=== PATIENT | female | born 1985 | race Two or more races ===

== ENCOUNTER 2018-09-29 01:37 | Inpatient (IN) | payer OTHER ==
[~2018-09-29] VITALS: Ht 167.6 cm; Wt 87.6 kg
--- NOTE | 2018-09-29 01:55 | NUR ---
RN OPEN NOTES RECEIVED PATIENT DIRECT ADMIT FROM [facility] VIA [facility]. A/OX4. NO SIGNS OF DISTRESS OR DISCOMFORT. BREATHING EVEN AND UNLABORED. STATES PAIN IS 5/10 IN ABD AND TOLERABLE AT THIS TIME. IV ACCESS IN LAC, PATENT AND INTACT, NO SIGNS OF REDNESS OR INFILTRATION. ORIENTED PATIENT TO UNIT AND ROOM. SKIN INTACT. BED IN LOW LOCKED POSITION WITH SIDE RAILS X2. CALL LIGHT WITHIN REACH. WILL CONTINUE TO MONITOR.
[2018-09-29 01:56] VITALS: BP 117/73
[2018-09-29] MEDS ORDERED: ACETAMINOPHEN 650 MG/SUPP.RECT RC PRN (04:30)
[2018-09-29] MEDS: IV D5/ 0.9% NACL 1,000 ML IV PRN (06:05)
[2018-09-29 07:13] LABS: BASOPHILS % (AUTO) 0.5 % (0.0-2.0); EOSINOPHILS % (AUTO) 4.5 % (0.0-6.0); HEMATOCRIT 40 % (33-45); HEMOGLOBIN 13.5 g/dL (11.5-14.8); LYMPHOCYTES # (AUTO) 1.4 /CMM (0.8-4.8); LYMPHOCYTES % (AUTO) 26.9 % (20.0-44.0); MEAN CORPUSCULAR HGB CONC 34 g/dl (31.0-36.0); MEAN CORPUSCULAR VOLUME 84 fL (82-100); MONOCYTES # (AUTO) 0.4 /CMM (0.1-1.30); MONOCYTES % (AUTO) 6.7 % (2.0-12.0); NEUTROPHILS # (AUTO) 3.2 /CMM (1.8-8.9); NEUTROPHILS % (AUTO) 61.4 % (43.0-81.0); PLATELET COUNT (AUTO) 228 /CMM (150-450); RED BLOOD CELL COUNT(AUTO) 4.79 MIL/uL (4.0-5.2); WHITE BLOOD COUNT (AUTO) 5.2 K/uL (4.3-11.0)
[2018-09-29 07:41] LABS: ALBUMIN 3.7 g/dL (3.4-5.0); CALCIUM, SERUM 8.7 mg/dL (8.5-10.1); CREATININE 0.9 mg/dL (0.6-1.3); MAGNESIUM 1.8 mg/dL (1.8-2.4); PHOSPHORUS 4.1 mg/dL (2.5-4.9); POTASSIUM 3.3 mmol/L (3.5-5.1); TOTAL PROTEIN, SERUM 6.9 g/dL (6.4-8.2)
--- NOTE | 2018-09-29 07:44 | NUR ---
RN CLOSING NOTES PATIENT AWAKE IN BED. A/OX4. NO SIGNS OF DISTRESS OR DISCOMFORT. BREATHING EVEN AND UNLABORED. STATES PAIN IN ABD IS TOLERABLE AT THIS TIME. IV ACCESS IN LAC WITH D5NS INFUSING, PATENT AND INTACT, NO SIGNS OF REDNESS OR INFILTRATION. ALL NEEDS MET. NO SIGNIFICANT CHANGES THROUGH THE NIGHT. BED IN LOW LOCKED POSITION WITH SIDE RAILS X2. CALL LIGHT WITHIN REACH. ENDORSED TO AM SHIFT FOR KAIDEN.
[2018-09-29 08:00] VITALS: BP 114/69
--- NOTE | 2018-09-29 08:00 | NUR ---
MS 2 RN AM NOTES RECEIVED PATIENT A/OX4. NO SIGNS OF DISTRESS OR DISCOMFORT. BREATHING EVEN AND UNLABORED. STATES PAIN IN ABD IS TOLERABLE AT THIS TIME. IV ACCESS IN LAC, PATENT AND INTACT WITH IVF D5NS AT 80 ML/HR INFUSING WELL, NO SIGNS OF REDNESS OR INFILTRATION ON THE IV SITE. ORIENTED PATIENT TO USE OF CALL LIGHT. SKIN INTACT. BED IN LOW LOCKED POSITION WITH SIDE RAILS X2. WITH BRP. CALL LIGHT WITHIN REACH. WILL CONTINUE TO MONITOR.
[2018-09-29] MEDS: FAMOTIDINE/PF INJ 20 MG/2 ML VIAL IV SCH ×2 (09:21→21:12)
[2018-09-29] MEDS ORDERED: POTASSIUM CHLORIDE 20 MEQ TAB.PRT.SR PO SCH (11:00)
[2018-09-29] MEDS: POTASSIUM CL. PREMIX PERIPHER. 50 ML IV SCH ×2 (11:54→14:40)
[2018-09-29] MEDS: MORPHINE SULFATE INJ 2 MG/ML DISP.SYRIN IV PRN ×2 (11:55→14:40)
--- NOTE | 2018-09-29 12:31 | NUR ---
PT HAS POTASSIUM IV INFUSION ONGOING AND C/O BURNING SENSATION IN THE IV SITE.INFUSED POTASSIUM IV ACCORDING TO PT'S TOLERANCE WHICH WILL CAUSE DELAY IN INFUSION.
[2018-09-29] MEDS: ONDANSETRON HCL/PF 4 MG/2 ML VIAL IVP PRN (14:48)
[2018-09-29 16:00] VITALS: BP 112/70
--- NOTE | 2018-09-29 19:48 | NUR ---
PT STILL IN NUCLEAR MED FOR HIDA SCAN PROCEDURE.
[2018-09-29 20:00] VITALS: BP 110/63
--- NOTE | 2018-09-30 06:53 | NUR ---
MS RN NOTES AWAKE & RESPONSIVE. NOT IN ANY DISTRESS. NO SOB NOTED. DENIES ANY PAIN OR DISCOMFORT AT THIS TIME. WITH IVF INFUSING WELL. MONITORED ACCORDINGLY. CALL LIGHT WITHIN REACH. BED IN LOWEST POSITION. SR UP X 2 FOR SAFETY. WILL ENDORSE TO NEXT SHIFT.
[2018-09-30 07:01] LABS: BASOPHILS % (AUTO) 0.7 % (0.0-2.0); EOSINOPHILS % (AUTO) 4.5 % (0.0-6.0); HEMATOCRIT 40 % (33-45); HEMOGLOBIN 13.4 g/dL (11.5-14.8); LYMPHOCYTES # (AUTO) 1.1 /CMM (0.8-4.8); LYMPHOCYTES % (AUTO) 22.2 % (20.0-44.0); MEAN CORPUSCULAR HGB CONC 34 g/dl (31.0-36.0); MEAN CORPUSCULAR VOLUME 83 fL (82-100); MONOCYTES # (AUTO) 0.5 /CMM (0.1-1.30); MONOCYTES % (AUTO) 10.4 % (2.0-12.0); NEUTROPHILS # (AUTO) 3.1 /CMM (1.8-8.9); NEUTROPHILS % (AUTO) 62.2 % (43.0-81.0); PLATELET COUNT (AUTO) 233 /CMM (150-450); RED BLOOD CELL COUNT(AUTO) 4.77 MIL/uL (4.0-5.2)
[2018-09-30 07:29] LABS: THYROID STIMULATING HORMONE 2.075 uIU/mL (0.358-3.74)
[2018-09-30 07:36] LABS: ALBUMIN 3.6 g/dL (3.4-5.0); BILIRUBIN,DIRECT 2.6 mg/dL (0.0-0.2); BILIRUBIN,TOTAL 5.5 mg/dL (0.2-1.0); CALCIUM, SERUM 8.9 mg/dL (8.5-10.1); CREATININE 0.8 mg/dL (0.6-1.3); MAGNESIUM 1.7 mg/dL (1.8-2.4); PHOSPHORUS 4.2 mg/dL (2.5-4.9); POTASSIUM 3.3 mmol/L (3.5-5.1); TOTAL PROTEIN, SERUM 6.8 g/dL (6.4-8.2)
[2018-09-30 08:00] VITALS: BP 114/69
--- NOTE | 2018-09-30 08:00 | NUR ---
MS 2 RN AM NOTES RECEIVED PATIENT A/OX4. NO SIGNS OF DISTRESS OR DISCOMFORT. BREATHING EVEN AND UNLABORED. STATES PAIN IN ABD IS TOLERABLE AT THIS TIME. IV ACCESS IN LAC, PATENT AND INTACT WITH IVF D5NS AT 80 ML/HR INFUSING WELL, NO SIGNS OF REDNESS OR INFILTRATION ON THE IV SITE.ON NPO.SKIN INTACT. BED IN LOW LOCKED POSITION WITH SIDE RAILS X2. WITH BRP. CALL LIGHT WITHIN REACH. WILL CONTINUE TO MONITOR.
[2018-09-30] MEDS: FAMOTIDINE/PF INJ 20 MG/2 ML VIAL IV SCH (08:49)
[2018-09-30] MEDS: ONDANSETRON HCL/PF 4 MG/2 ML VIAL IVP PRN (09:17)
[2018-09-30] MEDS: MORPHINE SULFATE INJ 2 MG/ML DISP.SYRIN IV PRN (10:00)
[2018-09-30] MEDS: Magnesium 1GM/D5W 100ML PREMIX 100 ML IV SCH ×2 (10:24→11:48)
[2018-09-30] MEDS: IV D5/ 0.9% NACL 1,000 ML IV PRN (10:30)
[2018-09-30] MEDS: POTASSIUM CL. PREMIX PERIPHER. 50 ML IV SCH ×2 (11:30→13:08)
--- NOTE | 2018-09-30 13:08 | NUR ---
ADMINISTERED KCL IV AND PT HAS VERY LOW TOLERANCE FOR K+IV AND ADJUSTED ACCORDING TO PT'S TOLERANCE-CAUSING DELAY OF ADMINISTRATION OF K+IV.
[2018-09-30] MEDS ORDERED: POLYETHYLENE GLYCOL 3350 17 GM POWD.PACK PO SCH (15:00)
[2018-09-30 16:00] VITALS: BP_SYST 116; BP_SYST 118; BP_DIAS 62
[2018-09-30] MEDS ORDERED: POTASSIUM CHLORIDE 10 MEQ TABLET.SA PO ONE (18:00)
--- NOTE | 2018-09-30 18:50 | NUR ---
PT CA/T TOLERATE THE ONGOING IV POTASSIUM -NOTIFIED DR ACEVEDO AND CONVERTED K+IV TO PO KDUR 10 MEQ PO X1 AND CARRIED OUT.
--- NOTE | 2018-09-30 19:15 | NUR ---
DISCHARGE INSTRUCTIONS GIVEN TO THE PT AND REMOVED LT AC WITH NO BLEEDING OR SWELLING ON THE IV SITE.DENIES ANY PAIN OR DISTRESS.DISCHARGED HOME WITH STABLE V/S ACCOMPANIED BY HER MOM.
== END 2018-09-30 19:10 | disposition home or self-care (01) ==
LOC: MEDSG2 01:37
PROVIDERS: ADMIT Internal Medicine; ATTEND Internal Medicine
DX: K80.50 Calculus of bile duct without cholangitis or cholecystitis without obstruction (principal); E66.9 Obesity, unspecified; E87.6 Hypokalemia; R74.0 Nonspecific elevation of levels of transaminase and lactic acid dehydrogenase [LDH]; E80.6 Other disorders of bilirubin metabolism; Z68.31 Body mass index [BMI] 31.0-31.9, adult
CPT/HCPCS: 36415; 71250-TC; 74181-TC; 78226; 80053-TC; 80061-TC; 82247-TC; 82248-TC; 83690-TC; 83735-TC; 84100-TC; 84443-TC; 84703-TC; 85025-TC; 87081-TC; A9537; G0378; J2270; J2405; J3475; J3480; J3490; J7030; J7042